=== PATIENT | male | born 1935 | race Caucasian/White ===

== ENCOUNTER → 2020-05-02 13:46 | Outpatient (BNVA) | payer MEDICARE, SELFPAY | PROVIDERS: PCP Internal Medicine; Visit Provider Urology | DX: Z13.9 Encounter for screening, unspecified (principal) | CPT/HCPCS: 52000; 81002; 99212 ==

== ENCOUNTER 2020-10-31 13:46 | Outpatient (REF) | payer MEDICARE, SELFPAY ==
[2020-10-31 17:13] LABS: Urine Cytology See Pathology rpt
== END 2020-10-31 13:47 | disposition home or self-care (01) ==
LOC: HO.LNP 13:46
PROVIDERS: PCP Internal Medicine; Referring Provider Physician Assistant Medical; Visit Provider Urology
DX: C61 Malignant neoplasm of prostate (principal); C67.9 Malignant neoplasm of bladder, unspecified
CPT/HCPCS: 52000; 88112; 99212

== ENCOUNTER 2021-05-08 13:38 | Outpatient (REF) | payer MEDICARE, SELFPAY | END 2021-05-08 13:39 | disposition home or self-care (01) | LOC: HO.LAB 13:38 | PROVIDERS: PCP Internal Medicine; Visit Provider Urology | DX: C61 Malignant neoplasm of prostate (principal); C67.9 Malignant neoplasm of bladder, unspecified | CPT/HCPCS: 52000; 99212 ==

== ENCOUNTER 2021-11-12 11:01 | Outpatient (REF) | payer MEDICARE, SELFPAY ==
[2021-11-12 17:02] LABS: Urine Cytology See Pathology rpt
== END 2021-11-12 11:02 | disposition home or self-care (01) ==
LOC: HO.LAB 11:01
PROVIDERS: Visit Provider Urology
DX: C67.9 Malignant neoplasm of bladder, unspecified (principal); C61 Malignant neoplasm of prostate
CPT/HCPCS: 52000; 88112; 99212

== ENCOUNTER 2022-06-08 09:40 | Outpatient (REF) | payer MEDICARE, SELFPAY ==
[2022-06-08 17:08] LABS: Urine Cytology See Pathology rpt
== END 2022-06-08 09:41 | disposition home or self-care (01) ==
LOC: HO.LAB 09:40
PROVIDERS: PCP Physician Assistant Medical; Visit Provider Urology
DX: C67.9 Malignant neoplasm of bladder, unspecified (principal); N52.9 Male erectile dysfunction, unspecified; F17.210 Nicotine dependence, cigarettes, uncomplicated; Z85.46 Personal history of malignant neoplasm of prostate
CPT/HCPCS: 52000; 88112; 99212

== ENCOUNTER 2022-12-07 09:53 | Outpatient (AMB) | payer MEDICARE, SELFPAY ==
--- NOTE | 2022-12-07 10:06 | A.OFFVIS_ITS ---
Intake Intake Visit Reasons: 8M/cysto(Bladder CA) Intake Note: Patient is Present for Cystoscopy Urology Med: None Antibiotic Allergy:Cipro, Penicillin, Sulfa, Levofloxacin Blood Thinner: None Pharmacy: [facility] Disposable Cystoscope lot: [id number] exp: 07/18/2022 Allergies levofloxacin [From LEVAQUIN] Allergy (Intermediate, Verified 12/07/22 10:07) SEVERE MUSCLE PAIN/SPASMS Penicillins [PENICILLINS] Allergy (Intermediate, Verified 12/07/22 10:07) RASH/HIVES Sulfa (Sulfonamide Antibiotics) [SULFA (SULFONAMIDE ANTIBIOTICS)] Allergy (Intermediate, Verified 12/07/22 10:07) ITCHING ciprofloxacin Allergy (Unknown, Verified 12/07/22 10:07) Unknown penicillin V Allergy (Unknown, Verified 12/07/22 10:07) Unknown Ciprofloxacin HCl Allergy (Unknown, Uncoded 12/07/22 10:07) Unknown HPI HPI Comments History of Present Illness Details Guy Kearney is a very pleasant male. He is a patient of Dr. Rivers. He is being seen for further evaluation of the following urologic issues ?-Bladder cancer ?-Prostate cancer. PSA stable 0.6 Bladder clean 6 month follow-up cystoscopy Bladder Cancer:? Recurrent high-grade superficial disease ? Doing well. Cysto stable. ?Last cytology atypical. ? Bladder cancer was initially diagnosed?during evaluation for microscopic hematuria 2013.? 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 Recurrence Risk per EORTC ?Intermediate Risk.? Bladder cancer risk factors? Organic Solvent exposure ?No ? smoking ?Yes ? hair dye exposure ?No ? use of pioglitazone ?No ? chronic cystitis ?No ? prior chemotherapy with cyclophosphamide ?No ? family history of bladder cancer ?No ? pelvic radiation ?Yes prostate cancer ? Prior Cystoscopy?August 2015 - bbx - low grade recurrence, June 2016 - left side wall superficial lesion Bx ?11/22 - dystrophic calcification on left side ?03/25 - trabeculation, minimal redness ?09/22 - trabeculation with occasional redness, 10/25 NAD, 04/28 NAD, 04/29 NAD 12/27 NAD ? Prior Cytology?August 2015 - negative ?Mar 2016 - , FISH, Normal ?June 2016 , Negative for malignancy ?September 2016 - atypical occasional ?NAD 01/21, 06/22, 11/22, 05/23, 12/23, 03/26 - 10/25 atypical, 11/26 negative high-grade ? Prior Imaging?June 2015 CT scan with contrast, No evidence for metastases.? Previous intravesical therapy?June 2015 , BCG Induction ?August 2015 , BCG/Interferon Induction.? Planned treatment?surveillance protocol Prostate cancer:? Low-grade. therapy external beam radiation 1999 after radical prostatectomy ? No issues ?PSA stable. ? Prostate cancer was diagnosed?1999.? Diagnosis was reached by?needle biopsy, for elevated PSA, PSA at diagnosis 5.4.? The Blanco grade is?3+3 = 6.? TNM Classification of Malignant Tumours (TNM)?T1c.? The D'Dami (NCCN) risk category is?Low Risk (PSA< 10, Gl < 7, T1c).? Initial therapy included?Primary treatment, External Beam Radiation, ?Additional treatment, Observation.? Recent labs included?a PSA (prostate-specific antigen) ?Oct 2014 0.8, May 2016 0.9, ?Dec 2016 0.7 ?03/25 0.7, 03/27 0.6, 04/29 0.6 ? Associated conditions ? erectile dysfunction ?Yes ? Therapeutic plan:?Continue with surveillance PFSH Medical History Asthma Coronary artery disease HTN (hypertension) Prostate cancer Bladder cancer Surgical History History of surgery Social History Patient Tobacco Use Status: Never used Tobacco Review of Systems Const Denies chills and Denies fever(s) Card Reports no additional complaints and Denies syncope Resp Denies cough GI Denies abdominal pain and Denies heartburn Reports as per HPI and Denies change in libido Neuro Denies syncope Psych Denies change in libido Endo Denies change in libido Physical Exam Const General: cooperative, healthy appearing, comfortable and no acute distress Orientation/consciousness: patient oriented x3 HEENT Face and sinus: Yes normal facial exam Mouth: moist mucous membranes Neck Neck: Yes normal visual inspection, Yes full ROM and Yes trachea midline Chest Chest palpation & inspection: normal inspection of the chest Resp Effort & Inspection: normal respiratory effort, able to speak in complete sentences and no respiratory distress GI Inspection: Yes normal to inspection Back/Spine/Pelvis Cervical Spine: normal cervical lordosis Thoracic/Lumbar Spine: thoracic and lumbar spine normal to inspection Skin General skin exam: no rashes or lesions noted Neuro General: patient oriented x3, gait normal, tone normal and moves all extremities Extrem General: Yes normal to inspection and Yes capillary refill normal Office Procedures Cystoscopy Consent Discussed risk and benefit or proposed procedure with the patient. Information consent for procedure given to the patient. Discussed technical aspects, risks, benefits and alternatives in full. Addressed all of the patient's questions and concerns regarding the procedure. The patient demonstrated knowledge and understanding. They wish to proceed with this procedure. Preparation The patient was prepped in the usual manner. A emergency medical technician was present and in the room. Genitalia was prepped with betadine solution in a sterile manner. Lidocaine Jelly 2% was placed into the urethra and 16Fr flexible Olympus cystoscope was inserted into the meatus after adequate lubrication. Procedure Meatus circumcised Urethra anterior posterior urethra normal Prostatic Urethra TURP defect Bladder examination with retroflexion of cystoscope Bladder Orifices normal shape and position Bladder Capacity medium Trabeculations grade 2 3 Cellule Formation yes Diverticulum Formation - Mucosal Erythema - Bladder Tumor - 13061-[id number] DISPOSABLE SCOPE URO-G FLEXIBLE SCOPE Procedure code (CPT) selection complete Office Meds lidocaine HCl 2 % mucosal jelly in applicator Performing Provider: Tobin Martinez MD Performing Location: [facility] Administered by: Joseph Wylie LPN on 12/07/22 10:20 Dose Route Admin Location Dispensed Lot Number Expiration Date ND Mold Carrier 10 mL intra-urethral 10 mL nitrofurantoin monohydrate/macrocrystals 100 mg capsule Performing Provider: Tobin Martinez MD Performing Location: [facility] Administered by: Joseph Wylie LPN on 12/07/22 10:20 Dose Route Admin Location Dispensed Lot Number Expiration Date NDC Mold Carrier 100 mg PO 1 cap naproxen 500 mg tablet Performing Provider: Tobin Martinez MD Performing Location: [facility] Administered by: Joseph Wylie LPN on 12/07/22 10:20 Dose Route Admin Location Dispensed Lot Number Expiration Date ND Mold Carrier 500 mg PO 1 tab Results AMB Urinalysis, Automated UA Leukoctes 0 Bryce/uL Last Edit by LEANNA Martinez on 12/07/22 10:13 UA Nitrite Negative Last Edit by LEANNA Martinez on 12/07/22 10:13 UA Urobilinogen 0.2 mg/dL Last Edit by LEANNA Martinez on 12/07/22 10:1 3 UA Protein 0 mg/dL Last Edit by LILI MartinezA on 12/07/22 10:13 UA pH 5.5 Last Edit by Ina Santos, RMA on 12/07/22 10:13 UA Blood 0 Cong/uL Last Edit by Ina Santos, RMA on 12/07/22 10:13 UA Specific Alpine 1.025 Last Edit by Ina Santos, RMA on 12/07/22 10: 13 UA Ketone Negative Last Edit by Ina Santos, RMA on 12/07/22 10:13 UA Bilirubin 0 mg/dL Last Edit by Ina Santos, RMA on 12/07/22 10:13 UA Glucose 0 mg/dL Last Edit by Ina Santos, A on 12/07/22 10:13 Results Reviewed Results Reviewed: Laboratory Last Values Urine pH (Auto) 5.5 12/07/22 10:08 Specific Alpine (Auto) 1.025 12/07/22 10:08 Urine Protein (Auto) 0 mg/dL 12/07/22 10:08 Glucose (UA)(Auto) 0 mg/dL 12/07/22 10:08 Urine Ketones (Auto) Negative 12/07/22 10:08 Urine Blood (Auto) 0 Cong/uL 12/07/22 10:08 Urine Nitrite (Auto) Negative 12/07/22 10:08 Urine Bilirubin (Auto) 0 mg/dL 12/07/22 10:08 Urine Urobilinogen (Auto) 0.2 mg/dL 12/07/22 10:08 Leukocyte Esterase (Auto) 0 Bryce/uL 12/07/22 10:08 Assessment & Plan Assessment & Plan (1) Bladder cancer: Code(s): C67.9 - Malignant neoplasm of bladder, unspecified Qualifiers: Bladder location: overlapping sites Qualified Code(s): C67.8 - Malignant neoplasm of overlapping sites of bladder (2) Prostate cancer: Code(s): C61 - Malignant neoplasm of prostate Plan Continue surveillance Orders: Orders AMB Urinalysis Automated 12/07/22 Z13.9 - Encounter for screening, unspecified Urine Cytology 12/07/22 C67.9 - Malignant neoplasm of bladder, unspecified AMB Cystoscopy 12/07/22 C67.9 - Malignant neoplasm of bladder, unspecified Patient Instructions: Imaging studies, laboratory and physical exam results were discussed and reviewed in detail. No major barriers to patient understanding were identified. An opportunity to ask questions regarding the treatment plan was provided. All questions were answered. The patient expressed understanding and agreement with the above treatment plan. The patient is aware they should contact our office by phone for worsening of their current condition or the appearance of new urologic symptoms. Compliance is encouraged with any medications and followup testing that is ordered. It is a privilege to participate in the urologic care of your patient. If you have any questions or concerns regarding treatment for the above conditions, or other urologic issues, please do not hesitate to contact me. The office telephone contact is [phone]. This note is constructed using voice recognition software. While every effort has been made to ensure accuracy cloud subject matter expert errors may have been included. Yours sincerely, Dr Tobin Martinez MD, [facility] Providers of Expert, Compassionate Care for the Genitourinary System Coding Level of Care Code Est Pt Level 3 (63698) Diagnoses Malignant neoplasm of overlapping sites of bladder C67.8 Bladder location: overlapping sites Prostate cancer C61 CPT Codes Cystoscopy - CPT: 36415-[id number] ([id number])
== END 2022-12-07 10:48 | disposition home or self-care (01) ==
PROVIDERS: PCP Physician Assistant Medical; Visit Provider Urology
DX: C67.8 Malignant neoplasm of overlapping sites of bladder (principal); C61 Malignant neoplasm of prostate
CPT/HCPCS: 52000; 99213

== ENCOUNTER 2022-12-07 09:53 | Outpatient (REF) | payer MEDICARE, SELFPAY ==
[2022-12-07 16:43] LABS: Urine Cytology See Pathology rpt
== END 2022-12-07 09:54 | disposition home or self-care (01) ==
LOC: HO.LAB 09:53
PROVIDERS: Visit Provider Urology
DX: C67.8 Malignant neoplasm of overlapping sites of bladder (principal); C61 Malignant neoplasm of prostate
CPT/HCPCS: 52000; 81003; 88112; 99212